=== PATIENT | male | born 1980 | race Caucasian/White ===

== ENCOUNTER 2017-07-11 20:07 | Emergency (ER) | payer BC, OTHER ==
[2017-07-11] MEDS ORDERED: Glucagon,Human Recombinant 1 MG Vial IVPUSH ONE (20:29)
[2017-07-11] MEDS ORDERED: Sodium Chloride 0.9% 10 ML Syringe FLUSH PRN (20:29)
[2017-07-11] MEDS ORDERED: LORazepam 2 MG/ML SDV IVPUSH ONE (20:29)
--- NOTE | 2017-07-11 20:56 | EDM.PDOC ---
ED HPI GENERAL MEDICAL PROBLEM - General Chief Complaint: ENT Problem Stated Complaint: FOOD STUCK IN THROAT Time Seen by Provider: 07/11/17 20:20 Source of Information: Reports: Patient History Limitations: Reports: No Limitations - History of Present Illness INITIAL COMMENTS - FREE TEXT/NARRATIVE: 36-year-old male presents for evaluation and treatment of impacted food bolus. Patient reports this occurred about 30 minutes prior to arrival in the ER. Reports he was eating steak. He states he cannot swallow his secretions. He denies any chest pain or shortness of breath. reports a discomfort and a food bolus sensation. States he has never had anything like this before. He has never had an upper endoscopy. Medications and include amlodipine, losartan and Lexapro. He states he did not take any of them quite some time. Onset: Today Duration: Minutes: (30) - Related Data Allergies Allergy/AdvReac Type Severity Reaction Status Date / Time No Known Allergies Allergy Verified 07/11/17 20:21 Home Meds: Home Meds Amlodipine. 1 tab PO DAILY 07/11/17 [History] Lexapro. 1 tab PO DAILY 07/11/17 [History] Losartan. 1 tab PO DAILY 07/11/17 [History] Past Medical History Respiratory History: Reports: Sleep Apnea Psychiatric History: Reports: Anxiety - Past Surgical History Musculoskeletal Surgical History: Reports: Arthroscopic Procedure Social & Family History - Tobacco Use Smoking Status *Q: Never Smoker Second Hand Smoke Exposure: No - Caffeine Use Caffeine Use: Reports: Soda - Alcohol Use Days Per Week of Alcohol Use: 0 - Recreational Drug Use Recreational Drug Use: No ED ROS ENT - Review of Systems Review Of Systems: See Below Respiratory: Denies: Shortness of Breath Cardiovascular: Denies: Chest Pain GI/Abdominal: Reports: Other (food bolus sensation, cannot swallow secretions) ED EXAM, ENT - Physical Exam Exam: See Below Exam Limited By: No Limitations General Appearance: Alert, WD/WN, No Apparent Distress Mouth/Throat: Normal Inspection Respiratory/Chest: No Respiratory Distress, Lungs Clear, Normal Breath Sounds Cardiovascular: Normal Peripheral Pulses, Regular Rate, Rhythm, No Murmur Course - Vital Signs Last Recorded V/S: Last Vital Signs Temp 36.2 C 07/11/17 20:19 Pulse 94 07/11/17 20:19 Resp 16 07/11/17 20:19 BP 198/109 H 07/11/17 20:19 Pulse Ox 96 07/11/17 20:19 - Orders/Labs/Meds Orders: Active Orders 24 hr Category Date Time Status Peripheral IV Care [RC] . DIRECTED Care 07/11/17 20:29 Active Sodium Chloride 0.9% [Saline Flush] Med 07/11/17 20:29 Active 10 ml FLUSH ASDIRECTED PRN Peripheral IV Insertion Adult [OM.PC] Routine Oth 07/11/17 20:29 Ordered Medication Orders Sodium Chloride (Saline Flush) 10 ml FLUSH ASDIRECTED PRN PRN Reason: Keep Vein Open Meds: Medications Generic Name Dose Route Start Last Admin Trade Name Freq PRN Reason Stop Dose Admin Sodium Chloride 10 ml 07/11/17 20:29 Saline Flush FLUSH ASDIRECTED PRN Keep Vein Open Discontinued Medications Generic Name Dose Route Start Last Admin Trade Name Freq PRN Reason Stop Dose Admin Glucagon 1 mg 07/11/17 20:29 07/11/17 20:42 Glucagen IVPUSH 07/11/17 20:30 1 mg ONETIME ONE Administration Lorazepam 1 mg 07/11/17 20:29 07/11/17 20:42 Ativan IVPUSH 07/11/17 20:30 1 mg ONETIME ONE Administration - Re-Assessments/Exams Free Text/Narrative Re-Assessment/Exam: 07/11/17 20:56 I checked on the patient. He has just received the Ativan and glucagon. I gave him a few sips of Sprite to sip and he immediately spit them out. 07/11/17 22:04 Patient still has been unable to move the food bolus with medications. Surgeon on-call, Dr. Young, does not perform upper endoscopy. We contacted Dr. Cheng and Dr. Cifuentes, our other surgeons available, both are out-of-town this weekend. I discussed this with the patient. He needs an upper endoscopy. He elects to go to [facility] in [place]. I spoke with one call. GI trail construction worker Dr. Moore was made aware of the case. He asked that the patient go through the ER and he will see him in the ER at [facility]. The patient would like to go by private vehicle. I educated him the risk of the fluid bolus obstructing his airway. I did inform him that this could be fatal. I informed this is unlikely but this is a risk. He was still like to go by private vehicle. Instructed to call 911 should he encounter any problems. Departure - Departure Time of Disposition: 22:07 Disposition: Home, Self-Care 01 Condition: Fair Clinical Impression: Food impaction of esophagus - Discharge Information Referrals: PCP,Not In Area [Primary Care Provider] - Forms: ED Department Discharge Additional Instructions: Go directly to the ER at [facility] in [place]. For any questions he may call . This is the number for the [facility] emergency department if you have any questions. Call 911 should you encounter any problems. - My Orders Last 24 Hours: My Active Orders 07/11/17 20:29 Peripheral IV Care [RC] . DIRECTED Sodium Chloride 0.9% [Saline Flush] 10 ml FLUSH ASDIRECTED PRN Peripheral IV Insertion Adult [OM.PC] Routine - Assessment/Plan Last 24 Hours: My Active Orders 07/11/17 20:29 Peripheral IV Care [RC] . DIRECTED Sodium Chloride 0.9% [Saline Flush] 10 ml FLUSH ASDIRECTED PRN Peripheral IV Insertion Adult [OM.PC] Routine
== END 2017-07-11 22:25 | disposition home or self-care (01) ==
LOC: JD.ED 20:07
DX: T18.128A Food in esophagus causing other injury, initial encounter (principal); F41.9 Anxiety disorder, unspecified; Z79.899 Other long term (current) drug therapy; X58.XXXA Exposure to other specified factors, initial encounter
CPT/HCPCS: 96374; 96375; 99284; J1610; J2060

== ENCOUNTER 2018-08-19 13:25 | Emergency (ER) | payer OTHER ==
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
[2018-08-19 14:55] LABS: ACETAMINOPHEN 0 ug/mL (10-30)
== END 2018-08-19 16:20 ==
LOC: JD.ED 13:25
DX: R45.851 Suicidal ideations (principal); R45.850 Homicidal ideations; F06.30 Mood disorder due to known physiological condition, unspecified; F41.9 Anxiety disorder, unspecified; Z79.899 Other long term (current) drug therapy
CPT/HCPCS: 36415; 80053; 80306; 84443; 85025; 99285; G0480